=== PATIENT | male | born 1990 ===

== ENCOUNTER 2017-07-26 12:57 | Emergency (ER) | payer OTHER ==
[2017-07-26 13:13] VITALS: O2SAT 100
--- NOTE | 2017-07-26 14:29 | ED PDOC ---
HPI: General Adult Time Seen by Provider: 07/26/17 13:57 Chief Complaint (Nursing): Palpitations History Per: Patient Additional Complaint(s): Pt. states for the past 4 months he's had atraumatic intermittent L shoulder pain which then turns into L sided chest pain and palpitations. Shortly after developing palpitations he then becomes anxious. Denies trauma, numbness, tingling, SOB, thyroid disorder, N/V, weakness. Past Medical History Reviewed: Historical Data, Nursing Documentation, Vital Signs Vital Signs: Last Vital Signs Temp 98.2 F 07/26/17 13:05 Pulse 73 07/26/17 14:30 Resp 16 07/26/17 13:05 BP 133/86 07/26/17 13:05 Pulse Ox 100 07/26/17 14:30 - Surgical History Surgical History: No Surg Hx - Family History Family History: States: No Known Family Hx Denies: [place], CAD - Social History Current smoker - smoking cessation education provided: No Drugs: Denies - Allergies Allergies/Adverse Reactions: Allergies Allergy/AdvReac Type Severity Reaction Status Date / Time No Known Allergies Allergy Verified 07/26/17 13:05 Review of Systems ROS Statement: Except As Marked, All Systems Reviewed And Found Negative Cardiovascular: Positive for: Chest Pain, Palpitations Musculoskeletal: Positive for: Shoulder Pain Physical Exam - Physical Exam Appears: Positive for: Well, Non-toxic, No Acute Distress Skin: Positive for: Normal Color, Warm. Negative for: Rash Eye Exam: Positive for: Normal appearance ENT: Positive for: Normal ENT Inspection Neck: Positive for: Normal, Painless ROM Cardiovascular/Chest: Positive for: Regular Rate, Rhythm. Negative for: Bradycardia, Tachycardia Respiratory: Positive for: CNT, Normal Breath Sounds Gastrointestinal/Abdominal: Positive for: Normal Exam, Soft. Negative for: Tenderness Back: Positive for: Normal Inspection Extremity: Positive for: Normal ROM Neurologic/Psych: Positive for: Alert, Oriented - Laboratory Results Result Diagrams: 07/26/17 14:45 07/26/17 14:45 - ECG ECG: Positive for: Interpreted By Me ECG Rhythm: Positive for: Sinus Rhythm. Negative for: ST/T Changes Rate: 73 O2 Sat by Pulse Oximetry: 100 - Radiology X-Ray: Interpreted by Me (CXR) X-Ray Interpretation: No Acute Disease - Progress ED Course And Treament: Labs ordered. On re-evaluation, pt. reports no episodes in ED. Denies SI/HI, hallucinations. Disposition - Clinical Impression Clinical Impression: Chest pain, Anxiety - Patient ED Disposition Is Patient to be Admitted: No - Disposition [facility]errals[facility] [[facility]] Disposition: Routine/Home Disposition Time: 17:53 Condition: STABLE Instructions: Chest Pain (ED) Forms: [facility] (Indian) Print Language: [place]
[2017-07-26 14:54] LABS: BASO % 0.3 % (0.0-2.0); EOS # 0.1 K/uL (0.0-0.7); EOS % 1.1 % (0.0-4.0); HEMOGLOBIN 16.5 g/dL (12.0-18.0); LYMPH # 1.9 K/uL (1.0-4.3); LYMPH % 33.1 % (20.0-40.0); MEAN CELL VOLUME 94.4 fl (80.0-94.0); MEAN CORPUSCULAR HGB CONC 33.8 g/dL (33.0-37.0); MEAN PLATELET VOLUME 9.7 fl (7.2-11.7); MONO # 0.9 K/uL (0.0-0.8); MONO % 15.5 % (0.0-10.0); NEUT # 2.8 K/uL (1.8-7.0); NRBC % 0.3 % (0.0-0.0); RBC 5.17 Mil/uL (4.40-5.90); RED CELL DISTRIBUTION WIDTH 12.4 % (11.5-14.5); WHITE BLOOD COUNT 5.7 K/uL (4.8-10.8)
[2017-07-26 15:08] LABS: ALB/GLOB RATIO 1.3 (1.0-2.1); ALBUMIN 4.5 g/dL (3.5-5.0); ALT/SGPT 64 U/L (21-72); AST/SGOT 35 U/L (17-59); BLOOD UREA NITROGEN 11 mg/dl (9-20); CALCIUM 9.6 mg/dL (8.4-10.2); GFR AFRICAN-AMERICAN > 60; GFR NON-AFRICAN AMERICAN > 60
[2017-07-26 17:15] LABS: BARBITURATES, UR NEGATIVE (NEGATIVE); BENZODIAZEPINES, UR NEGATIVE (NEGATIVE); OPIATES, UR NEGATIVE (NEGATIVE); PHENCYCLIDINE, UR NEGATIVE (NEGATIVE)
[2017-07-26 18:08] VITALS: BP 124/74; PULSE 94; RESP 20; TEMP 98
--- NOTE | 2017-07-27 13:16 | RAD ---
HISTORY: chest pain COMPARISON: None available. TECHNIQUE: Chest PA and lateral FINDINGS: LUNGS: Subtle left lower lobe opacity, possibly infiltrate. Bilateral hilar prominence. Please note that chest x-ray has limited sensitivity for the detection of pulmonary masses. PLEURA: No significant pleural effusion identified. No definite pneumothorax . CARDIOVASCULAR: The cardiomediastinal silhouette appears within normal limits of size. OSSEOUS STRUCTURES: No acute osseous abnormality identified. VISUALIZED UPPER ABDOMEN: Unremarkable. OTHER FINDINGS: None. IMPRESSION: Subtle left lower lobe opacity, possibly infiltrate. Correlate clinically. Bilateral hilar prominence. Study marked for PA review.
--- NOTE | 2017-07-28 09:51 | CARD ---
APPROVED REPORT EKG Measurement Heart [id number] <Conclusion> Normal sinus rhythm Possible Left atrial enlargement Borderline ECG
== END 2017-07-26 18:08 | disposition home or self-care (01) ==
LOC: H.ER 12:57
DX: F41.9 Anxiety disorder, unspecified (principal); R07.89 Other chest pain

== ENCOUNTER 2018-02-01 21:01 | Emergency (ER) | payer OTHER ==
[2018-02-01 22:56] VITALS: BP 121/77; PULSE 81; RESP 17; TEMP 98.2; O2SAT 99
--- NOTE | 2018-02-01 23:07 | ED PDOC ---
HPI: Eye Injury/Pain Time Seen by Provider: 02/01/18 22:31 Chief Complaint (Nursing): Eye Problem Chief Complaint (Provider): Redness to rigth eye History Per: Patient Additional Complaint(s): Pt is a 27 yo male, no PMH, presents to ED with c/o right eye pain, itching, purulent drainage (worse in the am) and redness x 2 days now. no fever or chills Pt does not wear contacts or glasses Past Medical History Reviewed: Nursing Documentation, Vital Signs Vital Signs: Last Vital Signs Temp 98.2 F 02/01/18 22:08 Pulse 81 02/01/18 22:08 Resp 17 02/01/18 22:08 BP 121/77 02/01/18 22:08 Pulse Ox 99 02/01/18 22:08 - Medical History PMH: No Chronic Diseases - Surgical History Surgical History: No Surg Hx - Family History Family History: States: No Known Family Hx Denies: [place], CAD - Living Arrangements Living Arrangements: With Family - Social History Current smoker - smoking cessation education provided: No Alcohol: Social Drugs: Denies - Home Medications Home Medications: Ambulatory Orders Medication Instructions Recorded Erythromycin 0.5% [Erythromycin 3.5 gm OP BID #1 tube 02/01/18 0.5% Oint] - Allergies Allergies/Adverse Reactions: Allergies Allergy/AdvReac Type Severity Reaction Status Date / Time No Known Allergies Allergy Verified 07/26/17 13:05 Review of Systems ROS Statement: Except As Marked, All Systems Reviewed And Found Negative Eyes: Positive for: Pain, Redness Physical Exam - Reviewed Nursing Documentation Reviewed: Yes Vital Signs Reviewed: Yes - Physical Exam Appears: Positive for: Well, Non-toxic, No Acute Distress Head Exam: Positive for: ATRAUMATIC, NORMAL INSPECTION, NORMOCEPHALIC Skin: Positive for: Normal Color, Warm, DRY Eye Exam: Positive for: EOMI, PERRL, Conjunctival injection, Other (purulence noted to medical canthus. (+) crusting to eyelids) ENT: Positive for: Normal ENT Inspection Neck: Positive for: Normal, Painless ROM Cardiovascular/Chest: Positive for: Regular Rate, Rhythm Respiratory: Positive for: CNT, Normal Breath Sounds Gastrointestinal/Abdominal: Positive for: Normal Exam, Soft Back: Positive for: Normal Inspection Extremity: Positive for: Normal ROM Neurologic/Psych: Positive for: Alert, Oriented - ECG O2 Sat by Pulse Oximetry: 99 Medical Decision Making Medical Decision Making: Pt educated on viral vs bacterial conjunctivitis. improtance of hand washing stressed. advised to follow up with optho. Disposition - Clinical Impression Clinical Impression: Conjunctivitis - Patient ED Disposition Is Patient to be Admitted: No - Disposition Disposition: Routine/Home Disposition Time: 23:19 Condition: STABLE Prescriptions: Erythromycin 0.5% [Erythromycin 0.5% Oint] 3.5 gm OP BID #1 tube Instructions: Conjunctivitis ([place]) Forms: [facility] ([place]) Print Language: ROMANIAN
== END 2018-02-01 23:16 | disposition home or self-care (01) ==
LOC: H.ER 21:01
DX: H10.9 Unspecified conjunctivitis (principal)